=== PATIENT | female | born 1970 | race African-American/Black ===

== ENCOUNTER 2022-01-17 10:42 | Emergency (ER) | payer OTHER ==
[2022-01-17] MEDS ORDERED: Ketorolac Tromethamine 30 MG/ML VIAL ONE (12:30)
[2022-01-17] MEDS ORDERED: Orphenadrine Citrate 60 MG/2 ML VIAL IM SCH (13:15)
== END 2022-01-17 14:19 | disposition home or self-care (01) ==
LOC: CSHERS 10:42
DX: M62.830 Muscle spasm of back (principal); Z86.73 Personal history of transient ischemic attack (TIA), and cerebral infarction without residual deficits; G43.909 Migraine, unspecified, not intractable, without status migrainosus; I10 Essential (primary) hypertension
CPT/HCPCS: 70450; 96372; 96374; J1885; J2360

== ENCOUNTER 2022-04-18 02:02 | Inpatient (IN) | payer MEDICAID, OTHER ==
[2022-04-18 02:21] LABS: #Eosinphils 0.2 10x3/uL (0.0-0.5); #Monocytes 0.5 10x3/uL (0.0-1.1); #Neutrophils 4.1 10x3/uL (1.5-8.4); %Basophils 0.7 % (0.0-2.0); %Eosinophils 2.4 % (0.0-6.0); %Lymphocytes 22.3 % (18.0-47.0); %Monocytes 7.8 % (0.0-10.0); %Neutrophils 66.3 % (40.0-75.0); Hemoglobin 12.9 g/dL (12.0-15.5); Mean Corpuscular HGB CONC 32.1 g/dL (32.0-36.0); Mean Corpuscular Hemoglobin 27.7 pg (27.0-33.0); Mean Corpuscular Volume 86.3 fl (81.6-98.3); Mean Platelet Volume 9.8 fl (7.4-10.4); Platelet Count 293 10x3/uL (150-450); RBC Distribution Width 13.8 % (11.5-14.5); Red Blood Cell (RBC) Count 4.66 10x6/uL (3.90-5.03); White Blood Cell (WBC) Count 6.2 10x3/uL (3.5-10.5)
[2022-04-18 02:26] LABS: BHCG - Serum Negative (NEGATIVE); Pregs Control Background? CLEAR/WHITE (CLR/WHITE); Pregs Control Bar Appear? YES (CONTROL BAR)
[2022-04-18 02:32] LABS: Acetaminophen Less than 10.0 mcg/mL (10.0-30.0); Alcohol Less than 10 mg/dL (Less than 10); Salicylate Less than 8.0 mg/dL (15.0-30.0)
[2022-04-18 02:33] LABS: ALT (SGPT) 33 U/L (8-55); AST (SGOT) 29 U/L (5-34); Albumin 4.1 g/dL (3.5-5.0); Alkaline Phosphatase 89 U/L (40-110); Anion Gap 15 mmol/L (10-20); BUN (Urea Nitrogen) 19 mg/dL (9.8-20.1); Bilirubin, Total 0.3 mg/dL (0.2-1.2); Calc. Creatinine Clearance 0 mL/min (70-130); Calcium 9.6 mg/dL (7.8-10.44); Carbon Dioxide 22 mmol/L (22-29); Chloride 107 mmol/L (98-107); Glucose 142 mg/dL (70-105); Potassium 3.5 mmol/L (3.5-5.1); Protein, Total 7.1 g/dL (6.0-8.3); Sodium 140 mmol/L (136-145)
[2022-04-18] MEDS ORDERED: Aspirin Chewable 81 MG TAB ONE (02:58)
[2022-04-18 04:39] LABS: Bilirubin Neg (Negative); Blood, Urine Negative (Negative); Clarity Clear (Clear); Glucose, Urine (Dipstick) Normal (Negative); Ketone, Urine Negative (Negative); Leukocyte Negative (Negative); Nitrite Negative (Negative); Protein, Urine (Dipstick) Negative (Neg-Trace); Specific Gravity, Urine 1.005 (1.002-1.036); Urobilinogen Normal mg/dL (Less than 2)
[2022-04-18 04:54] LABS: Amphetamine Not Detected (NotDetected); Barbiturates Screen Not Detected (NotDetected); Benzodiazepine Screen Not Detected (NotDetected); Cocaine Metabolite Screen Not Detected (NotDetected); Methadone Not Detected (NotDetected); Methamphetamine Not Detected (NotDetected); Opiate Screen Not Detected (NotDetected); Oxycodone Screen Not Detected (NotDetected); Phencyclidine (PCP) Not Detected (NotDetected); THC/Cannabinoid Screen Not Detected (NotDetected); Tricyclic Screen Not Detected (NotDetected)
[2022-04-18 06:11] VITALS: BMI 28.2
[2022-04-18] MEDS: Sodium Chloride 0.9% 1,000 ML IV SCH ×2 (06:32→21:12)
[2022-04-18 06:53] LABS: Troponin I Less than 0.010 ng/mL (< 0.028)
[2022-04-18 07:18] LABS: HIV (1/2) Antibody/Antigen Non-Reactive (NonReactive); HIV 1/2 INDEX 0.07 S/CO (<1.00)
[2022-04-18 07:35] LABS: Cardiac Risk 2.6 (Less than 4.5)
[2022-04-18] MEDS ORDERED: Hydrochlorothiazide 25 MG TAB ONE (09:01)
[2022-04-18] MEDS ORDERED: ALPRAZolam 0.25 MG TAB PO PRN (10:04)
[2022-04-18] MEDS: Topiramate 25 MG TAB PO SCH ×2 (10:13→21:09)
[2022-04-18] MEDS: Hydrochlorothiazide 25 MG TAB PO SCH (10:14)
[2022-04-18] MEDS: Famotidine 20 MG TAB PO SCH ×2 (10:14→21:09)
[2022-04-18] MEDS: Clopidogrel Bisulfate 75 MG TAB PO SCH (10:14)
[2022-04-18] MEDS: Lisinopril 20 MG TAB PO SCH (10:14)
[2022-04-18] MEDS: Cholecalciferol 1,000 UNITS (25 MCG) TAB PO SCH (10:14)
[2022-04-18] MEDS: Enoxaparin Sodium 40 MG/0.4 ML SYRINGE SC SCH (10:15)
[2022-04-18] MEDS: Aspirin 81 mg Enteric Coated Tablet PO SCH (10:16)
[2022-04-18 14:05] LABS: Syphilis Antibody INDETERMINATE (Nonreactive); Syphilis Antibody Index 15.88 S/CO (<1.00 Non-Reactive)
[2022-04-18] MEDS: Atorvastatin Calcium 40 MG TAB PO SCH (21:09)
[2022-04-19 05:56] LABS: #Eosinphils 0.2 10x3/uL (0.0-0.5); #Monocytes 0.4 10x3/uL (0.0-1.1); #Neutrophils 2.3 10x3/uL (1.5-8.4); %Eosinophils 5.6 % (0.0-6.0); %Lymphocytes 25.5 % (18.0-47.0); %Monocytes 9.8 % (0.0-10.0); %Neutrophils 57.4 % (40.0-75.0); Hemoglobin 12.3 g/dL (12.0-15.5); Mean Corpuscular HGB CONC 32.8 g/dL (32.0-36.0); Mean Corpuscular Hemoglobin 28.3 pg (27.0-33.0); Mean Corpuscular Volume 86.4 fl (81.6-98.3); Mean Platelet Volume 9.7 fl (7.4-10.4); Platelet Count 296 10x3/uL (150-450); RBC Distribution Width 13.8 % (11.5-14.5); Red Blood Cell (RBC) Count 4.34 10x6/uL (3.90-5.03); White Blood Cell (WBC) Count 4.1 10x3/uL (3.5-10.5)
[2022-04-19 06:09] LABS: Anion Gap 12 mmol/L (10-20); BUN (Urea Nitrogen) 17 mg/dL (9.8-20.1); Calc. Creatinine Clearance 92 mL/min (70-130); Calcium 8.6 mg/dL (7.8-10.44); Carbon Dioxide 22 mmol/L (22-29); Chloride 112 mmol/L (98-107); Glucose 108 mg/dL (70-105); Potassium 3.6 mmol/L (3.5-5.1); Sodium 142 mmol/L (136-145)
[2022-04-19] MEDS ORDERED: Ondansetron PF 4 MG/2 ML Vial IVP PRN (08:16)
[2022-04-19 12:14] LABS: ANA Symphony (Qualitative) Negative (Negative); ANA Symphony (Quantitative) 0.1 Ratio (< 0.7 Negative); dsDNA IgG Antibody Less than 0.5 IU/mL (<10 Negative)
[2022-04-19] MEDS: Acetaminophen 325 MG TAB PO PRN (12:22)
[2022-04-19] MEDS: Topiramate 25 MG TAB PO SCH ×2 (12:23→22:01)
[2022-04-19] MEDS: Aspirin 81 mg Enteric Coated Tablet PO SCH (12:25)
[2022-04-19] MEDS: Clopidogrel Bisulfate 75 MG TAB PO SCH (12:25)
[2022-04-19] MEDS: Famotidine 20 MG TAB PO SCH ×2 (12:25→22:01)
[2022-04-19] MEDS: Cholecalciferol 1,000 UNITS (25 MCG) TAB PO SCH (12:25)
[2022-04-19] MEDS: Hydrochlorothiazide 25 MG TAB PO SCH (12:26)
[2022-04-19] MEDS: Enoxaparin Sodium 40 MG/0.4 ML SYRINGE SC SCH (12:29)
[2022-04-19] MEDS: Lisinopril 20 MG TAB PO SCH (12:51)
[2022-04-19 14:27] LABS: Hemoglobin A1c 5.6 % (4.0-6.0)
[2022-04-19] MEDS: Sodium Chloride 0.9% 1,000 ML IV SCH ×2 (15:00→22:04)
[2022-04-19 21:34] LABS: Troponin I Less than 0.010 ng/mL (< 0.028)
[2022-04-19] MEDS: Atorvastatin Calcium 40 MG TAB PO SCH (22:01)
[2022-04-20 03:52] LABS: #Eosinphils 0.1 10x3/uL (0.0-0.5); #Monocytes 0.5 10x3/uL (0.0-1.1); #Neutrophils 3.2 10x3/uL (1.5-8.4); %Basophils 0.8 % (0.0-2.0); %Eosinophils 1.9 % (0.0-6.0); %Lymphocytes 20.7 % (18.0-47.0); %Monocytes 9.3 % (0.0-10.0); %Neutrophils 66.7 % (40.0-75.0); Mean Corpuscular HGB CONC 32.1 g/dL (32.0-36.0); Mean Corpuscular Hemoglobin 27.8 pg (27.0-33.0); Mean Corpuscular Volume 86.5 fl (81.6-98.3); Mean Platelet Volume 9.6 fl (7.4-10.4); Platelet Count 326 10x3/uL (150-450); RBC Distribution Width 13.8 % (11.5-14.5); Red Blood Cell (RBC) Count 4.68 10x6/uL (3.90-5.03); White Blood Cell (WBC) Count 4.8 10x3/uL (3.5-10.5)
[2022-04-20 03:59] LABS: ALT (SGPT) 24 U/L (8-55); AST (SGOT) 17 U/L (5-34); Albumin 3.8 g/dL (3.5-5.0); Alkaline Phosphatase 79 U/L (40-110); Anion Gap 12 mmol/L (10-20); BUN (Urea Nitrogen) 13 mg/dL (9.8-20.1); Bilirubin, Total 0.4 mg/dL (0.2-1.2); Calc. Creatinine Clearance 83 mL/min (70-130); Calcium 9.2 mg/dL (7.8-10.44); Carbon Dioxide 21 mmol/L (22-29); Chloride 110 mmol/L (98-107); Glucose 121 mg/dL (70-105); Magnesium 1.9 mg/dL (1.6-2.6); Potassium 3.3 mmol/L (3.5-5.1); Protein, Total 6.8 g/dL (6.0-8.3); Sodium 140 mmol/L (136-145)
[2022-04-20 04:05] LABS: Troponin I Less than 0.010 ng/mL (< 0.028)
[2022-04-20] MEDS ORDERED: Magnesium 2 GM/50 ML(in water) 2 GM in Premix Bag 1 BAG IVPB SCH (07:30)
[2022-04-20] MEDS: Topiramate 25 MG TAB PO SCH ×2 (08:49→21:38)
[2022-04-20] MEDS: Cholecalciferol 1,000 UNITS (25 MCG) TAB PO SCH (08:49)
[2022-04-20] MEDS: Potassium Chloride 20 MEQ TAB PO SCH ×2 (08:49→17:58)
[2022-04-20] MEDS: Hydrochlorothiazide 25 MG TAB PO SCH (08:49)
[2022-04-20] MEDS: Clopidogrel Bisulfate 75 MG TAB PO SCH (08:50)
[2022-04-20] MEDS: Enoxaparin Sodium 40 MG/0.4 ML SYRINGE SC SCH (08:50)
[2022-04-20] MEDS: Aspirin 81 mg Enteric Coated Tablet PO SCH (08:50)
[2022-04-20] MEDS: Famotidine 20 MG TAB PO SCH ×2 (08:50→21:37)
[2022-04-20] MEDS: Lisinopril 20 MG TAB PO SCH (08:50)
[2022-04-20] MEDS: Sodium Chloride 0.9% 1,000 ML IV SCH (11:51)
[2022-04-20] MEDS: Atorvastatin Calcium 40 MG TAB PO SCH (21:37)
[2022-04-21] MEDS: Sodium Chloride 0.9% 1,000 ML IV SCH ×2 (00:44→12:10)
[2022-04-21 05:25] LABS: #Eosinphils 0.2 10x3/uL (0.0-0.5); #Monocytes 0.6 10x3/uL (0.0-1.1); #Neutrophils 2.5 10x3/uL (1.5-8.4); %Basophils 0.9 % (0.0-2.0); %Eosinophils 3.4 % (0.0-6.0); %Lymphocytes 26.1 % (18.0-47.0); %Neutrophils 56.2 % (40.0-75.0); ALT (SGPT) 19 U/L (8-55); AST (SGOT) 13 U/L (5-34); Albumin 3.5 g/dL (3.5-5.0); Alkaline Phosphatase 75 U/L (40-110); Anion Gap 11 mmol/L (10-20); BUN (Urea Nitrogen) 15 mg/dL (9.8-20.1); Bilirubin, Total 0.3 mg/dL (0.2-1.2); Calc. Creatinine Clearance 76 mL/min (70-130); Calcium 8.9 mg/dL (7.8-10.44); Carbon Dioxide 22 mmol/L (22-29); Chloride 113 mmol/L (98-107); Globulin 2.8 g/dL (2.4-3.5); Glucose 93 mg/dL (70-105); Hemoglobin 12.4 g/dL (12.0-15.5); Magnesium 2.1 mg/dL (1.6-2.6); Mean Corpuscular HGB CONC 31.5 g/dL (32.0-36.0); Mean Corpuscular Hemoglobin 27.8 pg (27.0-33.0); Mean Corpuscular Volume 88.3 fl (81.6-98.3); Mean Platelet Volume 9.8 fl (7.4-10.4); Platelet Count 317 10x3/uL (150-450); Potassium 4.1 mmol/L (3.5-5.1); Protein, Total 6.3 g/dL (6.0-8.3); RBC Distribution Width 13.7 % (11.5-14.5); Red Blood Cell (RBC) Count 4.46 10x6/uL (3.90-5.03); Sodium 142 mmol/L (136-145); White Blood Cell (WBC) Count 4.5 10x3/uL (3.5-10.5)
[2022-04-21] MEDS: Famotidine 20 MG TAB PO SCH ×2 (12:08→21:01)
[2022-04-21] MEDS: Folic Acid 1 MG TAB PO SCH (12:08)
[2022-04-21] MEDS: Hydrochlorothiazide 25 MG TAB PO SCH (12:09)
[2022-04-21] MEDS: Topiramate 25 MG TAB PO SCH ×2 (12:09→21:01)
[2022-04-21] MEDS: Clopidogrel Bisulfate 75 MG TAB PO SCH (12:10)
[2022-04-21] MEDS: Enoxaparin Sodium 40 MG/0.4 ML SYRINGE SC SCH (12:10)
[2022-04-21] MEDS: Cholecalciferol 1,000 UNITS (25 MCG) TAB PO SCH (12:10)
[2022-04-21] MEDS: Aspirin 81 mg Enteric Coated Tablet PO SCH (12:10)
[2022-04-21] MEDS: Lisinopril 20 MG TAB PO SCH (12:20)
[2022-04-21] MEDS ORDERED: SUMAtriptan Succinate 25 MG TAB PO SCH (20:15)
[2022-04-21] MEDS: Amitriptyline HCl 10 MG TAB PO SCH (21:00)
[2022-04-21] MEDS: Atorvastatin Calcium 40 MG TAB PO SCH (21:01)
[2022-04-22 04:12] LABS: Prothrombin Time 10.4 sec (9.5-12.1)
[2022-04-22 04:22] LABS: #Eosinphils 0.2 10x3/uL (0.0-0.5); #Monocytes 0.4 10x3/uL (0.0-1.1); #Neutrophils 2.2 10x3/uL (1.5-8.4); %Eosinophils 5.1 % (0.0-6.0); %Lymphocytes 27.1 % (18.0-47.0); %Monocytes 11.1 % (0.0-10.0); %Neutrophils 55.2 % (40.0-75.0); Hemoglobin 12.5 g/dL (12.0-15.5); Mean Corpuscular HGB CONC 32.1 g/dL (32.0-36.0); Mean Corpuscular Hemoglobin 27.9 pg (27.0-33.0); Mean Corpuscular Volume 86.8 fl (81.6-98.3); Mean Platelet Volume 9.8 fl (7.4-10.4); Platelet Count 318 10x3/uL (150-450); RBC Distribution Width 13.9 % (11.5-14.5); Red Blood Cell (RBC) Count 4.48 10x6/uL (3.90-5.03)
[2022-04-22 04:29] LABS: ALT (SGPT) 22 U/L (8-55); AST (SGOT) 19 U/L (5-34); Albumin 3.4 g/dL (3.5-5.0); Alkaline Phosphatase 80 U/L (40-110); Anion Gap 11 mmol/L (10-20); BUN (Urea Nitrogen) 20 mg/dL (9.8-20.1); Bilirubin, Total 0.2 mg/dL (0.2-1.2); Calc. Creatinine Clearance 61 mL/min (70-130); Calcium 8.6 mg/dL (7.8-10.44); Carbon Dioxide 22 mmol/L (22-29); Chloride 113 mmol/L (98-107); Globulin 2.7 g/dL (2.4-3.5); Glucose 122 mg/dL (70-105); Potassium 3.4 mmol/L (3.5-5.1); Protein, Total 6.1 g/dL (6.0-8.3); Sodium 143 mmol/L (136-145)
[2022-04-22] MEDS: Hydrochlorothiazide 25 MG TAB PO SCH (09:17)
[2022-04-22] MEDS: Cholecalciferol 1,000 UNITS (25 MCG) TAB PO SCH (09:18)
[2022-04-22] MEDS: Lisinopril 20 MG TAB PO SCH (09:18)
[2022-04-22] MEDS: Topiramate 25 MG TAB PO SCH ×2 (09:18→21:23)
[2022-04-22] MEDS: Aspirin 81 mg Enteric Coated Tablet PO SCH (09:18)
[2022-04-22] MEDS: Famotidine 20 MG TAB PO SCH ×2 (09:18→21:22)
[2022-04-22] MEDS: Folic Acid 1 MG TAB PO SCH (09:18)
[2022-04-22 12:38] LABS: CSF, Glucose 75 mg/dL (40-70); CSF, Protein 31 mg/dL (15-40)
[2022-04-22 12:39] LABS: CSF RBC Count - Manual 1 /cu.mm (None Seen); CSF Source CSF; CSF WBC/NonHematics Count-Man 8 /cu.mm (0-5); Clarity Clear (Clear); Tube # 3
[2022-04-22 13:54] LABS: Lymphocytes 100 %; Segmented Neutrophils 0 %
[2022-04-22] MEDS ORDERED: Penicillin G Potassium 4,000,000 UNITS in Syringe 0 ML IVPB SCH (17:00)
[2022-04-22 17:11] LABS: HBCM Index 0.43 S/CO (0-0.79); Hep A IgM AB Non-Reactive (NonReactive); Hep A IgM S/CO 0.23 S/CO (0-0.79); Hep C IgG Ab Non-Reactive (NonReactive); Hep C Index 0.12 S/CO (0-0.79); Hepatitis B Core IgM Abs Non-Reactive (NonReactive)
[2022-04-22] MEDS: Penicillin G Potassium 4 MILL.UNITS in Sodium Chloride 0.9% 100 ML IVPB SCH ×2 (17:48→21:23)
[2022-04-22 19:27] LABS: HBSAg Index 0.22 S/CO (0-0.99); Hep B Surf Ag Non-Reactive S/CO (NonReactive)
[2022-04-22] MEDS ORDERED: Sodium Chloride 0.9% 100 ML ONE (20:03)
[2022-04-22] MEDS: Atorvastatin Calcium 40 MG TAB PO SCH (21:22)
[2022-04-22] MEDS: Amitriptyline HCl 10 MG TAB PO SCH (21:23)
[2022-04-23] MEDS: Penicillin G Potassium 4 MILL.UNITS in Sodium Chloride 0.9% 100 ML IVPB SCH ×6 (01:28→21:45)
[2022-04-23 03:38] LABS: #Eosinphils 0.2 10x3/uL (0.0-0.5); #Monocytes 0.6 10x3/uL (0.0-1.1); #Neutrophils 3.3 10x3/uL (1.5-8.4); %Basophils 0.5 % (0.0-2.0); %Eosinophils 3.1 % (0.0-6.0); %Lymphocytes 29.9 % (18.0-47.0); %Monocytes 9.8 % (0.0-10.0); %Neutrophils 56.2 % (40.0-75.0); Hemoglobin 13.7 g/dL (12.0-15.5); Mean Corpuscular Hemoglobin 28.1 pg (27.0-33.0); Mean Corpuscular Volume 87.7 fl (81.6-98.3); Mean Platelet Volume 9.7 fl (7.4-10.4); Platelet Count 340 10x3/uL (150-450); RBC Distribution Width 13.9 % (11.5-14.5); Red Blood Cell (RBC) Count 4.88 10x6/uL (3.90-5.03); White Blood Cell (WBC) Count 5.8 10x3/uL (3.5-10.5)
[2022-04-23 03:59] LABS: ALT (SGPT) 31 U/L (8-55); AST (SGOT) 29 U/L (5-34); Albumin 3.8 g/dL (3.5-5.0); Alkaline Phosphatase 88 U/L (40-110); Anion Gap 14 mmol/L (10-20); BUN (Urea Nitrogen) 21 mg/dL (9.8-20.1); Calc. Creatinine Clearance 66 mL/min (70-130); Calcium 9.3 mg/dL (7.8-10.44); Carbon Dioxide 22 mmol/L (22-29); Chloride 112 mmol/L (98-107); Globulin 3.2 g/dL (2.4-3.5); Glucose 105 mg/dL (70-105); Potassium 3.6 mmol/L (3.5-5.1); Sodium 144 mmol/L (136-145)
[2022-04-23 04:02] LABS: Bilirubin, Total 0.3 mg/dL (0.2-1.2)
[2022-04-23] MEDS: Famotidine 20 MG TAB PO SCH ×2 (08:54→21:46)
[2022-04-23] MEDS: Aspirin 81 mg Enteric Coated Tablet PO SCH (08:54)
[2022-04-23] MEDS: Folic Acid 1 MG TAB PO SCH (08:54)
[2022-04-23] MEDS: Lisinopril 20 MG TAB PO SCH (08:55)
[2022-04-23] MEDS: Topiramate 25 MG TAB PO SCH ×2 (08:55→21:46)
[2022-04-23] MEDS: Hydrochlorothiazide 25 MG TAB PO SCH (08:55)
[2022-04-23] MEDS: Cholecalciferol 1,000 UNITS (25 MCG) TAB PO SCH (08:55)
[2022-04-23] MEDS: Enoxaparin Sodium 40 MG/0.4 ML SYRINGE SC SCH (10:19)
[2022-04-23] MEDS: Amitriptyline HCl 10 MG TAB PO SCH (21:46)
[2022-04-23] MEDS: Atorvastatin Calcium 40 MG TAB PO SCH (21:46)
[2022-04-24] MEDS: Penicillin G Potassium 4 MILL.UNITS in Sodium Chloride 0.9% 100 ML IVPB SCH ×6 (01:15→22:39)
[2022-04-24 04:09] LABS: #Eosinphils 0.1 10x3/uL (0.0-0.5); #Monocytes 0.4 10x3/uL (0.0-1.1); #Neutrophils 2.6 10x3/uL (1.5-8.4); %Eosinophils 2.9 % (0.0-6.0); %Lymphocytes 23.8 % (18.0-47.0); %Monocytes 10.2 % (0.0-10.0); %Neutrophils 61.6 % (40.0-75.0); Hemoglobin 13.5 g/dL (12.0-15.5); Mean Corpuscular HGB CONC 31.5 g/dL (32.0-36.0); Mean Corpuscular Hemoglobin 27.7 pg (27.0-33.0); Mean Corpuscular Volume 87.7 fl (81.6-98.3); Mean Platelet Volume 9.5 fl (7.4-10.4); Platelet Count 242 10x3/uL (150-450); RBC Distribution Width 13.8 % (11.5-14.5); Red Blood Cell (RBC) Count 4.88 10x6/uL (3.90-5.03); White Blood Cell (WBC) Count 4.2 10x3/uL (3.5-10.5)
[2022-04-24 04:25] LABS: ALT (SGPT) 26 U/L (8-55); AST (SGOT) 27 U/L (5-34); Albumin 3.8 g/dL (3.5-5.0); Alkaline Phosphatase 74 U/L (40-110); Anion Gap 14 mmol/L (10-20); BUN (Urea Nitrogen) 18 mg/dL (9.8-20.1); Bilirubin, Total 0.4 mg/dL (0.2-1.2); Calc. Creatinine Clearance 80 mL/min (70-130); Calcium 9.3 mg/dL (7.8-10.44); Carbon Dioxide 17 mmol/L (22-29); Chloride 111 mmol/L (98-107); Globulin 3.1 g/dL (2.4-3.5); Glucose 108 mg/dL (70-105); Magnesium 1.8 mg/dL (1.6-2.6); Potassium 3.5 mmol/L (3.5-5.1); Protein, Total 6.9 g/dL (6.0-8.3); Sodium 138 mmol/L (136-145)
[2022-04-24] MEDS: Amitriptyline HCl 10 MG TAB PO SCH ×3 (06:38→22:41)
[2022-04-24] MEDS: Enoxaparin Sodium 40 MG/0.4 ML SYRINGE SC SCH (08:36)
[2022-04-24] MEDS: Famotidine 20 MG TAB PO SCH ×2 (08:37→22:39)
[2022-04-24] MEDS: Topiramate 25 MG TAB PO SCH ×2 (08:37→22:38)
[2022-04-24] MEDS: Hydrochlorothiazide 25 MG TAB PO SCH (08:37)
[2022-04-24] MEDS: Aspirin 81 mg Enteric Coated Tablet PO SCH (08:38)
[2022-04-24] MEDS: Folic Acid 1 MG TAB PO SCH (08:38)
[2022-04-24] MEDS: Cholecalciferol 1,000 UNITS (25 MCG) TAB PO SCH (08:38)
[2022-04-24] MEDS: Lisinopril 20 MG TAB PO SCH (08:38)
[2022-04-24] MEDS ORDERED: Sodium Bicarbonate 2.5 MEQ/5 ML VIAL ONE (11:28)
[2022-04-24] MEDS: Atorvastatin Calcium 40 MG TAB PO SCH (22:38)
[2022-04-25] MEDS: Penicillin G Potassium 4 MILL.UNITS in Sodium Chloride 0.9% 100 ML IVPB SCH ×6 (01:35→22:18)
[2022-04-25 04:17] LABS: #Basophils 0.1 10x3/uL (0.0-0.2); #Eosinphils 0.2 10x3/uL (0.0-0.5); #Monocytes 0.5 10x3/uL (0.0-1.1); #Neutrophils 2.7 10x3/uL (1.5-8.4); %Basophils 1.1 % (0.0-2.0); %Eosinophils 3.6 % (0.0-6.0); %Lymphocytes 24.2 % (18.0-47.0); %Monocytes 10.5 % (0.0-10.0); %Neutrophils 60.2 % (40.0-75.0); Hemoglobin 13.1 g/dL (12.0-15.5); Mean Corpuscular HGB CONC 31.9 g/dL (32.0-36.0); Mean Corpuscular Hemoglobin 27.9 pg (27.0-33.0); Mean Corpuscular Volume 87.4 fl (81.6-98.3); Mean Platelet Volume 9.8 fl (7.4-10.4); Platelet Count 309 10x3/uL (150-450); RBC Distribution Width 13.5 % (11.5-14.5); White Blood Cell (WBC) Count 4.5 10x3/uL (3.5-10.5)
[2022-04-25 04:50] LABS: ALT (SGPT) 28 U/L (8-55); AST (SGOT) 22 U/L (5-34); Albumin 3.7 g/dL (3.5-5.0); Alkaline Phosphatase 80 U/L (40-110); Anion Gap 14 mmol/L (10-20); BUN (Urea Nitrogen) 16 mg/dL (9.8-20.1); Bilirubin, Total 0.4 mg/dL (0.2-1.2); Calc. Creatinine Clearance 77 mL/min (70-130); Calcium 9.2 mg/dL (7.8-10.44); Carbon Dioxide 21 mmol/L (22-29); Chloride 111 mmol/L (98-107); Globulin 3.1 g/dL (2.4-3.5); Glucose 106 mg/dL (70-105); Magnesium 1.9 mg/dL (1.6-2.6); Potassium 3.8 mmol/L (3.5-5.1); Protein, Total 6.8 g/dL (6.0-8.3); Sodium 142 mmol/L (136-145)
[2022-04-25] MEDS: Enoxaparin Sodium 40 MG/0.4 ML SYRINGE SC SCH (08:53)
[2022-04-25] MEDS: Cholecalciferol 1,000 UNITS (25 MCG) TAB PO SCH (08:53)
[2022-04-25] MEDS: Topiramate 25 MG TAB PO SCH ×2 (08:53→22:21)
[2022-04-25] MEDS: Hydrochlorothiazide 25 MG TAB PO SCH (08:54)
[2022-04-25] MEDS: Lisinopril 20 MG TAB PO SCH (08:54)
[2022-04-25] MEDS: Famotidine 20 MG TAB PO SCH ×2 (08:54→22:18)
[2022-04-25] MEDS: Folic Acid 1 MG TAB PO SCH (08:54)
[2022-04-25] MEDS: Aspirin 81 mg Enteric Coated Tablet PO SCH (08:54)
[2022-04-25] MEDS: Atorvastatin Calcium 40 MG TAB PO SCH (22:18)
[2022-04-25] MEDS: Amitriptyline HCl 10 MG TAB PO SCH (22:18)
[2022-04-26] MEDS: Penicillin G Potassium 4 MILL.UNITS in Sodium Chloride 0.9% 100 ML IVPB SCH ×3 (02:44→09:32)
[2022-04-26 04:25] LABS: #Eosinphils 0.2 10x3/uL (0.0-0.5); #Monocytes 0.6 10x3/uL (0.0-1.1); #Neutrophils 2.9 10x3/uL (1.5-8.4); %Basophils 0.8 % (0.0-2.0); %Eosinophils 4.5 % (0.0-6.0); %Lymphocytes 22.2 % (18.0-47.0); %Monocytes 12.1 % (0.0-10.0); %Neutrophils 59.8 % (40.0-75.0); Hemoglobin 13.8 g/dL (12.0-15.5); Mean Corpuscular HGB CONC 32.3 g/dL (32.0-36.0); Mean Corpuscular Hemoglobin 28.1 pg (27.0-33.0); Mean Platelet Volume 9.9 fl (7.4-10.4); Platelet Count 332 10x3/uL (150-450); RBC Distribution Width 13.8 % (11.5-14.5); Red Blood Cell (RBC) Count 4.91 10x6/uL (3.90-5.03); White Blood Cell (WBC) Count 4.9 10x3/uL (3.5-10.5)
[2022-04-26 04:37] LABS: ALT (SGPT) 28 U/L (8-55); AST (SGOT) 23 U/L (5-34); Albumin 3.9 g/dL (3.5-5.0); Alkaline Phosphatase 92 U/L (40-110); Anion Gap 14 mmol/L (10-20); BUN (Urea Nitrogen) 21 mg/dL (9.8-20.1); Bilirubin, Total 0.3 mg/dL (0.2-1.2); Calc. Creatinine Clearance 67 mL/min (70-130); Calcium 9.4 mg/dL (7.8-10.44); Carbon Dioxide 24 mmol/L (22-29); Chloride 108 mmol/L (98-107); Globulin 3.3 g/dL (2.4-3.5); Glucose 103 mg/dL (70-105); Magnesium 2.1 mg/dL (1.6-2.6); Potassium 3.6 mmol/L (3.5-5.1); Protein, Total 7.2 g/dL (6.0-8.3); Sodium 142 mmol/L (136-145)
[2022-04-26] MEDS: Cholecalciferol 1,000 UNITS (25 MCG) TAB PO SCH (09:31)
[2022-04-26] MEDS: Aspirin 81 mg Enteric Coated Tablet PO SCH (09:31)
[2022-04-26] MEDS: Lisinopril 20 MG TAB PO SCH (09:31)
[2022-04-26] MEDS: Hydrochlorothiazide 25 MG TAB PO SCH (09:31)
[2022-04-26] MEDS: Folic Acid 1 MG TAB PO SCH (09:32)
[2022-04-26] MEDS: Famotidine 20 MG TAB PO SCH (09:32)
[2022-04-26] MEDS: Enoxaparin Sodium 40 MG/0.4 ML SYRINGE SC SCH (09:32)
[2022-04-26] MEDS: Topiramate 25 MG TAB PO SCH (09:32)
[2022-04-26] MEDS: Acetaminophen 325 MG TAB PO PRN (09:48)
[2022-04-26 17:17] VITALS: BP 124/75; TEMP 99.5
== END 2022-04-26 18:00 | disposition home or self-care (01) | DRG 56 ==
LOC: CSHERS 02:02 → INTOOBSV 04:33 → CSHTELE 04:33 → OBSVTOIN 04-22 09:46
PROVIDERS: ADMIT Family Medicine; ATTEND Hospitalist
PROC: 4A10X4Z Monitoring of Central Nervous Electrical Activity, External Approach (ICD-10-PCS; principal; 2022-04-19)
PROC: 009U3ZX Drainage of Spinal Canal, Percutaneous Approach, Diagnostic (ICD-10-PCS; 2022-04-22)
PROC: 02HV33Z Insertion of Infusion Device into Superior Vena Cava, Percutaneous Approach (ICD-10-PCS; 2022-04-24)
PROC: B548ZZA Ultrasonography of Superior Vena Cava, Guidance (ICD-10-PCS; 2022-04-24)
DX: A52.3 Neurosyphilis, unspecified (principal); G93.41 Metabolic encephalopathy; I69.351 Hemiplegia and hemiparesis following cerebral infarction affecting right dominant side; N17.9 Acute kidney failure, unspecified; I10 Essential (primary) hypertension; G43.909 Migraine, unspecified, not intractable, without status migrainosus; K22.719 Barrett's esophagus with dysplasia, unspecified; E53.8 Deficiency of other specified B group vitamins; E87.6 Hypokalemia; Z20.822 Contact with and (suspected) exposure to COVID-19; Z90.710 Acquired absence of both cervix and uterus; Z79.82 Long term (current) use of aspirin; Z79.899 Other long term (current) drug therapy
CPT/HCPCS: 36415; 36416; 36569; 51701; 70450; 70551; 71045; 76705; 76770; 80048; 80053; 80061; 80074; 80306; 80307; 81003; 82607; 82746; 82945; 83036; 83735; 84157; 84443; 84484; 84703; 85025; 85060; 85379; 85610; 85652; 85730; 86038; 86225; 86592; 86593; 86780; 87070; 87205; 87389; 87899; 89051; 93005; 93010; 93306; 93880; 94760; 95819; 95957; 96360; 96361; 96372; 96374; C1751; G0378; J1650; J2540; J3475; J3490; J7050

== ENCOUNTER 2024-09-23 08:55 | Emergency (ER) | payer BC, OTHER ==
[2024-09-23] MEDS ORDERED: Ibuprofen 200 MG TAB ONE (10:38)
[2024-09-23] MEDS ORDERED: Hydrochlorothiazide 25 MG TAB PO SCH (11:00)
== END 2024-09-23 12:08 | disposition home or self-care (01) ==
LOC: CSHERS 08:55
DX: S13.4XXA Sprain of ligaments of cervical spine, initial encounter (principal); I10 Essential (primary) hypertension; V89.2XXA Person injured in unspecified motor-vehicle accident, traffic, initial encounter; Z86.73 Personal history of transient ischemic attack (TIA), and cerebral infarction without residual deficits
CPT/HCPCS: 70450; 72125